=== PATIENT | female | born 1990 | race Two or more races ===

== ENCOUNTER 2024-09-04 00:06 | Emergency (ER) | payer OTHER ==
[~2024-09-04] VITALS: Ht 175.3 cm; Wt 59.0 kg
[2024-09-04] MEDS ORDERED: AMBIEN10 MG PO (00:13)
[2024-09-04] MEDS ORDERED: VISTARIL50 MG/ML PO (00:13)
[2024-09-04] MEDS ORDERED: RISPERDAL2 MG PO (00:13)
[2024-09-04] MEDS ORDERED: BUSPIRONE HCL10 MG PO (00:13)
[2024-09-04] MEDS ORDERED: TRAZODONE HCL150 MG PO (00:13)
[2024-09-04] MEDS ORDERED: HALOPERIDOL LACTATE 5 MG/ML AMPUL IM STA (01:53)
[2024-09-04] MEDS ORDERED: DIPHENHYDRAMINE HCL 50 MG/ML VIAL 1ML IM STA (01:54)
[2024-09-04] MEDS ORDERED: KETOROLAC TROMETHAMINE 30 MG VIAL IV STA (01:54)
[2024-09-04] MEDS ORDERED: KETOROLAC TROMETHAMINE 30 MG VIAL ONE (01:56)
[2024-09-04] MEDS ORDERED: HALOPERIDOL LACTATE 5 MG/ML AMPUL ONE (01:57)
[2024-09-04] MEDS ORDERED: DIPHENHYDRAMINE HCL 50 MG/ML VIAL 1ML ONE ×2 (01:57→02:05)
== END 2024-09-04 03:03 | disposition home or self-care (01) ==
LOC: ER 00:06
DX: G43.909 Migraine, unspecified, not intractable, without status migrainosus (principal)
CPT/HCPCS: 96365; 96372; 99282; J1200; J1885; J3490